=== PATIENT | female | born 1995 | race Caucasian/White ===

== ENCOUNTER 2018-01-01 07:13 | Emergency (ER) | payer OTHER ==
[2018-01-01] MEDS ORDERED: GI Cocktail Oral Solution 30 ML PO ONE (07:28)
--- NOTE | 2018-01-01 07:35 | EDM.PDOC ---
ED HPI GENERAL MEDICAL PROBLEM - General Chief Complaint: Abdominal Pain Stated Complaint: SHARP PAIN ABD AND UP Time Seen by Provider: 01/01/18 07:29 Source of Information: Reports: Patient, RN, RN Notes Reviewed History Limitations: Reports: No Limitations - History of Present Illness INITIAL COMMENTS - FREE TEXT/NARRATIVE: Pt to ER with c/o sharp pains in the epigastrum/upper abdomen radiating into the chest. She states this pain started abruptly about 40 minutes ago. She states she has not eaten since last night, tacos. She states she had the stomach flu last week, but otherwise has not been ill. Denies fever or chills. She states she is nauseated at times, no vomiting or diarrhea. States she has DMI and takes insulin, that is her only med other than OC. Onset: Today, Sudden Duration: Constant Location: Reports: Chest, Abdomen Quality: Reports: Sharp, Stabbing Severity: Moderate Improves with: Reports: None Worsens with: Reports: None Associated Symptoms: Reports: Chest Pain, Nausea/Vomiting - Related Data Allergies Allergy/AdvReac Type Severity Reaction Status Date / Time No Known Allergies Allergy Verified 01/01/18 07:19 Past Medical History Genitourinary History: Reports: Other (See Below) Other Genitourinary History: kidney infections Endocrine/Metabolic History: Reports: Diabetes, Type I Social & Family History - Tobacco Use Smoking Status *Q: Never Smoker Second Hand Smoke Exposure: No - Recreational Drug Use Recreational Drug Use: No ED ROS GENERAL - Review of Systems Review Of Systems: ROS reveals no pertinent complaints other than HPI. ED EXAM, GI/ABD - Physical Exam Exam: See Below Exam Limited By: No Limitations General Appearance: Alert, WD/WN, Mild Distress Eyes: Bilateral: Normal Appearance, EOMI Ears: Normal External Exam Nose: Normal Inspection Throat/Mouth: Normal Inspection Head: Atraumatic Neck: Normal Inspection Respiratory/Chest: No Respiratory Distress, Lungs Clear, Normal Breath Sounds, No Accessory Muscle Use, Chest Non-Tender Cardiovascular: Normal Peripheral Pulses, Regular Rate, Rhythm, No Edema, No Gallop, No JVD, No Murmur, No Rub GI/Abdominal Exam: Normal Bowel Sounds, Soft, No Organomegaly, No Distention, No Abnormal Bruit, No Mass, Pelvis Stable, Tender (epigastrum, RUQ, LUQ) (Female) Exam: Deferred Rectal (Female) Exam: Deferred Back Exam: Normal Inspection, Full Range of Motion Extremities: Normal Inspection, Normal Range of Motion, Non-Tender, No Pedal Edema, Normal Capillary Refill Neurological: Alert, Oriented, CN II-XII Intact, Normal Cognition, Normal Gait, Normal Reflexes, No Motor/Sensory Deficits Psychiatric: Anxious Skin Exam: Warm, Dry, Intact, Normal Color, No Rash Lymphatic: No Adenopathy Course - Vital Signs Last Recorded V/S: Last Vital Signs Temp 97.8 F 01/01/18 07:16 Pulse 120 H 01/01/18 07:16 Resp 20 01/01/18 07:16 BP 143/84 H 01/01/18 07:16 Pulse Ox 97 01/01/18 07:16 - Orders/Labs/Meds Orders: Active Orders 24 hr Category Date Time Status Peripheral IV Care [RC] . DIRECTED Care 01/01/18 07:55 Active Sodium Chloride 0.9% [Saline Flush] Med 01/01/18 07:53 Active 10 ml FLUSH ASDIRECTED PRN Peripheral IV Insertion Adult [OM.PC] Stat Oth 01/01/18 07:53 Ordered Medication Orders Sodium Chloride (Saline Flush) 10 ml FLUSH ASDIRECTED PRN PRN Reason: Keep Vein Open Last Admin: 01/01/18 08:18 Dose: 10 ml Labs: Laboratory Tests 01/01/18 01/01/18 01/01/18 Range/Units 07:32 07:32 07:39 WBC 8.3 (5.0-10.0) 10^3/uL RBC 5.05 (4.2-5.4) 10^6/uL Hgb 15.1 (12.0-16.0) g/dL Hct 44.6 (37.0-47.0) % MCV 88.3 (80-100) fL MCH 29.9 (27.0-34.0) pg MCHC 33.9 (33.0-35.0) g/dL Plt Count 289 (150-450) 10^3/uL Neut % (Auto) 45.8 (42.2-75.2) % Lymph % (Auto) 44.3 (20.5-50.1) % [place] % (Auto) 7.5 (2-8) % Eos % (Auto) 1.9 (1.0-3.0) % Baso % (Auto) 0.5 (0.0-1.0) % Sodium (135-145) mmol/L Potassium (3.6-5.0) mmol/L Chloride (101-111) mmol/L Carbon Dioxide (21.0-31.0) mmol/L Anion Gap BUN (7-18) mg/dL Creatinine (0.6-1.3) mg/dL Est Cr Clr Drug Dosing mL/min Estimated GFR (MDRD) BUN/Creatinine Ratio Glucose (74-105) mg/dL Calcium (8.4-10.2) mg/dl Total Bilirubin (0.2-1.0) mg/dL AST (10-42) IU/L ALT (10-60) IU/L Alkaline Phosphatase (42-121) IU/L Total Protein (6.7-8.2) g/dl Albumin (3.2-5.5) g/dl Globulin Albumin/Globulin Ratio Amylase (28-100) U/L Lipase (22-51) U/L Urine Color Yellow (YELLOW) Urine Appearance Slightly cloudy (CLEAR) Urine pH 6.0 (5.0-9.0) Ur Specific [place] 1.025 (1.005-1.030) Urine Protein Negative (NEGATIVE) Urine Glucose (UA) 500 H (NEGATIVE) Urine Ketones Trace H (NEGATIVE) Urine Occult Blood Negative (NEGATIVE) Urine Nitrite Negative (NEGATIVE) Urine Bilirubin Negative (NEGATIVE) Urine Urobilinogen 0.2 (0.2-1.0) mg/dL Ur Leukocyte Esterase Negative (NEGATIVE) Urine RBC 0-5 /HPF Urine WBC 0-5 (0-5/HPF) /HPF Ur Epithelial Cells Many H /HPF Urine Bacteria Few (0-FEW/HPF) /HPF Urine Mucus Many H /LPF Urine HCG, Qual Negative 01/01/18 Range/Units 07:39 WBC (5.0-10.0) 10^3/uL RBC (4.2-5.4) 10^6/uL Hgb (12.0-16.0) g/dL Hct (37.0-47.0) % MCV (80-100) fL MCH (27.0-34.0) pg MCHC (33.0-35.0) g/dL Plt Count (150-450) 10^3/uL Neut % (Auto) (42.2-75.2) % Lymph % (Auto) (20.5-50.1) % [place] % (Auto) (2-8) % Eos % (Auto) (1.0-3.0) % Baso % (Auto) (0.0-1.0) % Sodium 135 (135-145) mmol/L Potassium 4.0 (3.6-5.0) mmol/L Chloride 100 L (101-111) mmol/L Carbon Dioxide 24.0 (21.0-31.0) mmol/L Anion Gap 15.0 BUN 18 (7-18) mg/dL Creatinine 0.8 (0.6-1.3) mg/dL Est Cr Clr Drug Dosing 113.16 mL/min Estimated GFR (MDRD) > 60 BUN/Creatinine Ratio 22.50 Glucose 271 H (74-105) mg/dL Calcium 9.5 (8.4-10.2) mg/dl Total Bilirubin 0.8 (0.2-1.0) mg/dL AST 22 (10-42) IU/L ALT 21 (10-60) IU/L Alkaline Phosphatase 66 (42-121) IU/L Total Protein 7.8 (6.7-8.2) g/dl Albumin 4.3 (3.2-5.5) g/dl Globulin 3.5 Albumin/Globulin Ratio 1.23 Amylase 53 (28-100) U/L Lipase 20 L (22-51) U/L Urine Color (YELLOW) Urine Appearance (CLEAR) Urine pH (5.0-9.0) Ur Specific [place] (1.005-1.030) Urine Protein (NEGATIVE) Urine Glucose (UA) (NEGATIVE) Urine Ketones (NEGATIVE) Urine Occult Blood (NEGATIVE) Urine Nitrite (NEGATIVE) Urine Bilirubin (NEGATIVE) Urine Urobilinogen (0.2-1.0) mg/dL Ur Leukocyte Esterase (NEGATIVE) Urine RBC /HPF Urine WBC (0-5/HPF) /HPF Ur Epithelial Cells /HPF Urine Bacteria (0-FEW/HPF) /HPF Urine Mucus /LPF Urine HCG, Qual Meds: Medications Generic Name Dose Route Start Last Admin Trade Name Freq PRN Reason Stop Dose Admin Sodium Chloride 10 ml 01/01/18 07:53 09/21/18 08:18 Saline Flush FLUSH 10 ml ASDIRECTED PRN Administration Keep Vein Open Discontinued Medications Generic Name Dose Route Start Last Admin Trade Name Letty PRN Reason Stop Dose Admin Al Hydroxide/Mg Hydroxide 30 ml 01/01/18 07:28 01/01/18 07:31 Gi Cocktail PO 01/01/18 07:29 30 ml ONETIME ONE Administration Dicyclomine HCl 10 mg 01/01/18 08:47 01/01/18 08:57 Bentyl PO 01/01/18 08:48 10 mg ONETIME ONE Administration Hydromorphone HCl 0.5 mg 01/01/18 07:53 01/01/18 08:15 Dilaudid IVPUSH 01/01/18 07:54 0.5 mg ONETIME ONE Administration Sodium Chloride 1,000 mls @ 999 mls/hr 01/01/18 07:53 01/01/18 08:13 Normal Saline IV 01/01/18 08:53 999 mls/hr .BOLUS ONE Administration Iopamidol 75 ml 01/01/18 08:13 01/01/18 08:21 Isovue-300 (61%) IVPUSH 01/01/18 08:14 75 ml ONETIME ONE Administration Ondansetron HCl 4 mg 01/01/18 07:53 01/01/18 08:13 Zofran IV 01/01/18 07:54 4 mg ONETIME ONE Administration - Radiology Interpretation Free Text/Narrative:: CT Abdomen/Pelvis with contrast: Negative exam Chest xray: No acute findings See rad report Departure - Departure Time of Disposition: 10:08 Disposition: Home, Self-Care 01 Condition: Fair Clinical Impression: Abdominal pain Qualifiers: Abdominal location: right upper quadrant Qualified Code(s): R10.11 - Right upper quadrant pain - Discharge Information *PRESCRIPTION DRUG MONITORING PROGRAM REVIEWED*: No *COPY OF PRESCRIPTION DRUG MONITORING REPORT IN PATIENT TERESA: No Instructions: Nausea and Vomiting, Adult, [id number], Abdominal Pain, Adult, [id number], Gallbladder Eating Plan Referrals: PCP,None [Primary Care Provider] - Forms: ED Department Discharge Additional Instructions: Follow up with your primary care facility Gallbladder Ultrasound recommended in the near future May use Tylenol and/or ibuprofen as directed for pain Follow diet for Gallbladder Drink plenty of fluids Return to the ER with any further problems. - My Orders Last 24 Hours: My Active Orders 01/01/18 07:53 Sodium Chloride 0.9% [Saline Flush] 10 ml FLUSH ASDIRECTED PRN Peripheral IV Insertion Adult [OM.PC] Stat 01/01/18 07:55 Peripheral IV Care [RC] . DIRECTED - Assessment/Plan Last 24 Hours: My Active Orders 01/01/18 07:53 Sodium Chloride 0.9% [Saline Flush] 10 ml FLUSH ASDIRECTED PRN Peripheral IV Insertion Adult [OM.PC] Stat 01/01/18 07:55 Peripheral IV Care [RC] . DIRECTED
[2018-01-01] MEDS ORDERED: Ondansetron 4 MG/2 ML SDV IV ONE (07:53)
[2018-01-01] MEDS ORDERED: Sodium Chloride 0.9% 1,000 ML IV ONE (07:53)
[2018-01-01] MEDS ORDERED: Sodium Chloride 0.9% 10 ML Syringe FLUSH PRN (07:53)
[2018-01-01] MEDS ORDERED: HYDROmorphone 0.5 MG/0.5 ML Syringe IVPUSH ONE (07:53)
[2018-01-01 08:06] LABS: CHLORIDE,CL 100 mmol/L (101-111); SODIUM,NA 135 mmol/L (135-145)
[2018-01-01] MEDS ORDERED: Iopamidol 612 MG/ML 75 ML Bottle IVPUSH ONE (08:13)
--- NOTE | 2018-01-01 08:26 | CT ---
Clinical history: 22-year-old 159 pound diabetic female complaining of "severe" right upper quadrant pain. TECHNIQUE: Volume acquisition of data abdomen/pelvis obtained without oral ingestion contrast but dur ing intravenous infusion 75 cc nonionic Isovue contrast 3 cc/s via injector) while patient was lying supine on the Siemens multislice scanner [facility]. All data arch ived in the PACS system for storage, reformatting axial/sagittal planes and study. Interpretation: 1. Fluid-filled Gallbladder demonstrated RUQ i.e. uniformly thin wall and shows no sign of pericystic fluid, mucosal wall mass or intraluminal calcified stones. Normal hepatic size, configuration and ho mogeneous density. No intrahepatic mass or ductal dilatation. 2. Unenhanced stomach, spleen, pancreas and adrenal glands unremarkable. No extrahepatic biliary/pennie r pancreatic duct dilatation. 3. Symmetric normal-appearing kidneys. No sign of cortical mass, pyelonephritis, nephrolithiasis or o bstructive uropathy. 4. Appendix not identified. Some stool scattered throughout the colon but nonspecific bowel pattern. No sign of inflammatory "dirty" peritoneal fat, abscess, mechanical bowel obstruction, ascites or karen e intraperitoneal air. No abdominal or pelvic mass lesion. 5. Normal caliber aortoiliac vessels. Normal cardiac silhouette. Lung bases clear. Lower thoracic and lumbar spine unremarkable. CONCLUSION: Negative exam.
[2018-01-01] MEDS ORDERED: Dicyclomine 10 MG Cap PO ONE (08:47)
--- NOTE | 2018-01-01 10:06 | CR ---
CLINICAL HISTORY: A 22-year-old female with right upper quadrant and back pain. INTERPRETATION: Negative exam. Normal cardiac silhouette without cephalization of vascular flow, signs of alveolar edema or dependen t pleural effusion. Slight scoliosis dorsal spine. Ribs and bony thorax otherwise unremarkable. No lung mass, hilar lymphadenopathy or focal lobar pneumonia. No atelectasis/collapse. No pneumothorax or free subdiaphragmatic air.
== END 2018-01-01 11:17 | disposition home or self-care (01) ==
LOC: DL.ED 07:13
DX: R10.11 Right upper quadrant pain (principal); E10.9 Type 1 diabetes mellitus without complications
CPT/HCPCS: 36415; 71046; 74177; 80053; 81001; 81025; 82150; 83690; 85025; 96361; 96374; 96375; 99284; A9270; J1170; J2405; J7030; J7050; Q9967